=== PATIENT | male | born 1995 | race Caucasian/White ===

== ENCOUNTER 2025-07-21 07:27 | Inpatient (IN) | payer SELFPAY ==
[~2025-07-21] VITALS: Ht 170.2 cm; Wt 74.8 kg
[2025-07-21 07:32] VITALS: O2SAT 98
[2025-07-21 08:16] LABS: BASOPHILS % 0.5 % (0.0-2.0); EOSINOPHILS % 0.3 % (0.0-5.0); HEMATOCRIT. 41.9 % (42.0-52.0); HEMOGLOBIN. 14.2 g/dL (14.0-18.0); LYMPHOCYTES % 21.2 % (20.0-50.0); MEAN PLATELET VOLUME 7.8 fl (7.4-10.4); MONOCYTES % 9.3 % (2.0-8.0); NEUTROPHILS % 68.7 % (40.0-76.0); PLATELET 300 x1000/uL (130-400); RED BLOOD CELL COUNT 4.52 mill/uL (4.7-6.1); RED CELL DISTRIBUTION WIDTH 12.9 % (11.6-14.6)
[2025-07-21 08:18] LABS: CLARITY URINE CLEAR (CLEAR); COLOR URINE YELLOW (YELLOW); GLUCOSE URINE NEGATIVE (NEGATIVE); KETONES URINE 1+ (NEGATIVE); LEUKOCYTE ESTERASE URINE NEGATIVE (NEGATIVE); NITRITE URINE NEGATIVE (NEGATIVE); OCCULT BLOOD URINE NEGATIVE (NEGATIVE); PH URINE 7.0 (4.5-8.0); PROTEIN URINE NEGATIVE (NEGATIVE); SPECIFIC GRAVITY URINE 1.005 (1.005-1.030); UROBILINOGEN URINE 0.2 E.U./dL (0.2-1.0)
[2025-07-21 08:28] LABS: CREATININE 1.1 mg/dL (0.6-1.3); UREA NITROGEN BLOOD 10 mg/dL (9-23)
[2025-07-21] MEDS: LORAZEPAM 2MG/ML UD SYRINGE IV SCH (08:44)
[2025-07-21] MEDS: CHLORDIAZEPOXIDE 25MG CAPSULE PO ONE (08:44)
[2025-07-21] MEDS: SODIUM CHLORIDE 0.9% 1,000 ML IV ONE (08:49)
[2025-07-21] MEDS: KCL 10MEQ/50ML PREMIX 50 ML IV SCH (09:58)
[2025-07-21 10:48] VITALS: BP 105/55; PULSE 78; RESP 18; TEMP 36.6404
[2025-07-21 12:00] VITALS: BP 105/43; PULSE 78; RESP 18; TEMP 36.7; O2SAT 98
[2025-07-21] MEDS ORDERED: SODIUM CHLORIDE 0.9% 1,000 ML IV SCH (12:00)
[2025-07-21] MEDS ORDERED: CLONIDINE 0.1MG TABLET PO PRN (12:00)
[2025-07-21] MEDS ORDERED: ZOLPIDEM TARTRATE 5MG TABLET PO PRN (12:00)
[2025-07-21] MEDS ORDERED: ONDANSETRON HCL 4MG/2ML INJ IV PRN ×2 (12:00)
[2025-07-21] MEDS ORDERED: MORPHINE SULFATE 4 MG/ML INJ (FOR IV/IM USE) IV PRN (12:00)
[2025-07-21] MEDS ORDERED: MAGNESIUM/ALUMINUM HYDROXIDE/SIMETHICONE 30ML UDC PO PRN (12:00)
[2025-07-21] MEDS ORDERED: HYDROCODONE/ACETAMINOPHEN 5/325MG TABLET PO PRN ×2 (12:00)
[2025-07-21] MEDS ORDERED: LORAZEPAM 2MG/ML UD SYRINGE IV PRN (12:00)
[2025-07-21] MEDS ORDERED: ACETAMINOPHEN 325MG TABLET PO PRN (12:00)
[2025-07-21] MEDS ORDERED: NALOXONE HCL 0.4MG/ML VIAL IV PRN (12:15)
[2025-07-21] MEDS: SODIUM CHLORIDE 0.9% 1,000 ML IV SCH (12:45)
[2025-07-21] MEDS: ENOXAPARIN 40MG/0.4ML SYR SUBCUT SCH (12:46)
[2025-07-21 14:39] LABS: CLARITY URINE CLEAR (CLEAR); COLOR URINE YELLOW (YELLOW); GLUCOSE URINE NEGATIVE (NEGATIVE); KETONES URINE NEGATIVE (NEGATIVE); LEUKOCYTE ESTERASE URINE NEGATIVE (NEGATIVE); NITRITE URINE NEGATIVE (NEGATIVE); OCCULT BLOOD URINE NEGATIVE (NEGATIVE); PH URINE 8.0 (4.5-8.0); PROTEIN URINE NEGATIVE (NEGATIVE); SPECIFIC GRAVITY URINE 1.008 (1.005-1.030); UROBILINOGEN URINE 0.2 E.U./dL (0.2-1.0)
[2025-07-21 14:51] LABS: *AMPHETAMINES SCREEN URINE NEGATIVE (NEGATIVE); *BARBITURATES SCREEN URINE NEGATIVE (NEGATIVE); *BENZODIAZEPINES SCREEN URINE NEGATIVE (NEGATIVE); *COCAINE SCREEN URINE NEGATIVE (NEGATIVE)
[2025-07-21 14:52] LABS: CANNABINOID URINE SCREEN NEGATIVE (NEGATIVE); ECSTASY MDMA SCREEN URINE NEGATIVE (NEGATIVE); METHADONE URINE SCREEN NEGATIVE (NEGATIVE); OPIATES URINE SCREEN NEGATIVE (NEGATIVE); PHENCYCLIDINE URINE SCREEN NEGATIVE (NEGATIVE)
[2025-07-21] MEDS: MVI, ADULT NO.1 10 ML, FOLIC ACID 1 MG, THIAMINE HCL 100 MG in SODIUM CHLORIDE 0.9% 1,0... IV SCH (15:43)
[2025-07-21 16:00] VITALS: BP 113/58; PULSE 58; RESP 18; TEMP 36.5; O2SAT 99
[2025-07-21 20:00] VITALS: BP 125/81; PULSE 63; RESP 18; TEMP 36.7; O2SAT 97
[2025-07-22] VITALS: BP 115/72; PULSE 58; RESP 17; TEMP 36.6; O2SAT 99
[2025-07-22 04:00] VITALS: BP 112/64; PULSE 60; RESP 17; TEMP 36.5; O2SAT 96
[2025-07-22 08:00] VITALS: BP 114/65; PULSE 50; RESP 16; TEMP 36.6; O2SAT 98
[2025-07-22 08:12] LABS: BASOPHILS % 0.9 % (0.0-2.0); EOSINOPHILS % 6.6 % (0.0-5.0); HEMATOCRIT. 42.7 % (42.0-52.0); HEMOGLOBIN. 14.2 g/dL (14.0-18.0); LYMPHOCYTES % 39.8 % (20.0-50.0); MEAN PLATELET VOLUME 8.4 fl (7.4-10.4); MONOCYTES % 10.4 % (2.0-8.0); NEUTROPHILS % 42.3 % (40.0-76.0); PLATELET 233 x1000/uL (130-400); RED BLOOD CELL COUNT 4.48 mill/uL (4.7-6.1); RED CELL DISTRIBUTION WIDTH 13.1 % (11.6-14.6)
[2025-07-22 08:26] LABS: CREATININE 0.9 mg/dL (0.6-1.3); UREA NITROGEN BLOOD 6 mg/dL (9-23)
[2025-07-22] MEDS ORDERED: PANTOPRAZOLE SODIUM 40 MG/VIAL IV SCH (09:00)
[2025-07-22] MEDS: PANTOPRAZOLE SODIUM 40 MG/VIAL IV SCH (10:57)
[2025-07-22 12:00] VITALS: BP 123/75; PULSE 54; RESP 16; TEMP 36.1; O2SAT 100
[2025-07-22 16:00] VITALS: BP 117/63; PULSE 54; RESP 18; TEMP 36.5; O2SAT 97
[2025-07-22 20:00] VITALS: BP 117/78; PULSE 55; RESP 16; TEMP 36.4; O2SAT 97
[2025-07-23] VITALS: BP 129/83; PULSE 56; RESP 14; TEMP 36.4; O2SAT 98
[2025-07-23 04:00] VITALS: BP 120/76; PULSE 58; RESP 16; TEMP 36.4; O2SAT 99
[2025-07-23 08:00] VITALS: BP 129/72; PULSE 65; RESP 17; TEMP 36.3; O2SAT 96
[2025-07-23] MEDS ORDERED: THIA100T72 MT (10:28)
[2025-07-23 12:30] VITALS: BP 124/75; PULSE 67; RESP 17; TEMP 36.2; O2SAT 98
[2025-07-23 13:40] LABS: BASOPHILS % 0.7 % (0.0-2.0); EOSINOPHILS % 8.2 % (0.0-5.0); HEMATOCRIT. 42.0 % (42.0-52.0); HEMOGLOBIN. 14.1 g/dL (14.0-18.0); LYMPHOCYTES % 30.2 % (20.0-50.0); MEAN PLATELET VOLUME 9.2 fl (7.4-10.4); MONOCYTES % 9.5 % (2.0-8.0); NEUTROPHILS % 51.4 % (40.0-76.0); PLATELET 221 x1000/uL (130-400); RED BLOOD CELL COUNT 4.40 mill/uL (4.7-6.1); RED CELL DISTRIBUTION WIDTH 12.8 % (11.6-14.6)
[2025-07-23 14:07] LABS: CREATININE 0.8 mg/dL (0.6-1.3)
[2025-07-23 14:08] LABS: UREA NITROGEN BLOOD < 5 mg/dL (9-23)
[2025-07-23 14:30] VITALS: BP 124/75; PULSE 67; RESP 17; TEMP 97.1
== END 2025-07-23 15:10 | disposition home or self-care (01) | DRG 425 ==
LOC: ER 07:27 → 8WST 09:36 → EDBEDREQ 09:39 → EDBEDREQTM 09:39 → ENRESERV 09:51
PROVIDERS: ADMIT Internal Medicine; ATTEND Internal Medicine
DX: E87.6 Hypokalemia (principal); D72.829 Elevated white blood cell count, unspecified; F10.239 Alcohol dependence with withdrawal, unspecified; Y90.1 Blood alcohol level of 20-39 mg/100 ml; F32.A Depression, unspecified; F41.9 Anxiety disorder, unspecified; Z79.899 Other long term (current) drug therapy
CPT/HCPCS: 36415; 80048; 80305; 80320; 81003; 84443; 85025; 86850; 86900; 93005; 93970; 99285; J1650; J2060; J2470; J3411; J3480; J3490; J7030; G0480